=== PATIENT | male | born 1990 | race Caucasian/White ===

== ENCOUNTER 2020-08-06 01:07 | Emergency (ER) | payer OTHER ==
[~2020-08-06] VITALS: Ht 175.3 cm; Wt 86.0 kg
[2020-08-06] MEDS ORDERED: normal saline 1000ml 1,000 ML IV ONE ×3 (02:05→07:30)
[2020-08-06] MEDS ORDERED: fentaNYL/PF 50MCG/1 ML 2ML syringe ONE ×2 (02:08→03:16)
[2020-08-06] MEDS ORDERED: LIDOcaine Viscous 15ml cup ONE (02:09)
[2020-08-06] MEDS ORDERED: MIDAZolam 1 MG/ML 5ML VIAL ONE ×2 (02:09→03:16)
[2020-08-06 02:10] VITALS: BP 169/100
--- NOTE | 2020-08-06 02:25 | NUR ---
Nurse at bedside placing IV.
[2020-08-06 03:19] VITALS: BP 133/89
[2020-08-06 03:29] VITALS: BP 141/80
[2020-08-06 03:39] VITALS: BP 143/84
[2020-08-06 03:49] VITALS: BP 138/89
--- NOTE | 2020-08-06 04:03 | NUR ---
Pt back from GI lab with a new IV placement. Pt stated first IV placed by nurse gave him a burning sensation.
[2020-08-06 07:33] VITALS: BP 127/98
--- NOTE | 2020-08-06 08:15 | NUR ---
PATIENT PULLED OUT NG TUBE AND STATES THAT HE DOES NOT WANT IT IN BECAUSE IT HURTS. DR. WOODSON AWARE OF THIS. PATIENT REFUSES TO HAVE NG TUBE REINSERTED.
== END 2020-08-06 10:51 ==
LOC: ER 01:08 → EEVIPCON 01:08 → ER 10:51
DX: T18.2XXA Foreign body in stomach, initial encounter (principal); F15.90 Other stimulant use, unspecified, uncomplicated; Z72.89 Other problems related to lifestyle; X58.XXXA Exposure to other specified factors, initial encounter; Y93.89 Activity, other specified; Y92.89 Other specified places as the place of occurrence of the external cause; Y99.8 Other external cause status
CPT/HCPCS: 43247; 71045; 74018; 96360; 96361; 99152; 99153; 99285; C1769; J2250; J3010; J7030; J7040; 99284